=== PATIENT | male | born 1970 ===

== ENCOUNTER → 2021-04-19 12:10 | Outpatient (CLI) | payer OTHER, SELFPAY ==
[2021-04-19 19:30] LABS: Alanine Aminotransferase 34 IU/L (<50); Albumin 4.6 g/dL (3.5-5.0); Albumin Globulin Ratio 1.3 (1.0-2.8); Alkaline Phosphatase 80 U/L (38-126); Amylase 62 U/L (30-110); Aspartate Aminotransferase 31 IU/L (17-59); BUN Creatinine Ratio 15.7 (6-22); Bilirubin Total 0.7 mg/dL (0.2-1.3); Blood Urea Nitrogen 13 mg/dL (9-20); Calcium 9.5 mg/dL (8.4-10.2); Carbon Dioxide 34 mmol/L (22-32); Chloride 101 mmol/L (98-107); Estimated Glomerular Filt Rate > 60.0 mL/min (>60); Globulin 3.5 g/dL (1.7-4.1); Glucose 97 mg/dL (70-100); HEMOLYSIS < 15 (0-50); Lipase 65 U/L (23-300); Potassium 4.4 mmol/L (3.4-5.1); Sodium 139 mmol/L (137-145); Total Protein 8.1 g/dL (6.3-8.2)
[2021-04-19 19:31] LABS: Add Manual Diff / Slide Review NO; Basophils Absolute Auto 0 /uL (0-100); Basophils Percent Auto 0.5 % (0-2); Eosinophils Absolute Auto 100 /uL (0-450); Eosinophils Percent Auto 1.5 % (2-4); Hematocrit 46.3 % (41-53); Hemoglobin 16.2 g/dL (13.5-17.5); Lymphocytes Absolute Auto 1100 /uL (1100-4500); Lymphocytes Percent Auto 19.1 % (25-40); Mean Corpuscular HGB Conc 34.9 % (30-36); Mean Corpuscular Hemoglobin 31.9 PG (26-34); Mean Corpuscular Volume 91.3 fL (80-100); Monocytes Absolute Auto 500 /uL (0-900); Monocytes Percent Auto 8.4 % (3-14); Neutrophils Absolute Auto 3900 /uL (1500-7000); Neutrophils Percent Auto 70.5 % (50-75); Platelet Count 183 X10^3/uL (150-400); Red Blood Cell Count 5.08 X10^6/uL (4.5-5.9); Red Cell Distribution Width 13.9 % (11.6-14.8); White Blood Cell Count 5.6 X10^3/uL (4.5-11.0)
== END ==
PROVIDERS: PCP Physician Assistant; Visit Provider Physician Assistant
DX: R10.12 Left upper quadrant pain (principal)
CPT/HCPCS: 80053; 82150; 83690; 85025

== ENCOUNTER → 2022-01-27 10:28 | Outpatient (CLI) | payer OTHER, SELFPAY ==
[2022-01-27 20:05] LABS: Cholesterol 234 mg/dL (140-199); HDL Cholesterol 45 mg/dL (40-60); LDL Cholesterol Calculated 171 mg/dL (<100); Triglycerides 91 mg/dL (35-150)
[2022-01-27 20:27] LABS: TSH w/ Reflex to FT4 1.89 uIU/mL (0.47-4.68)
[2022-01-27 20:29] LABS: Prostate Specific Antigen Scrn 0.858 ng/mL (0.1-4.0)
== END ==
PROVIDERS: PCP Physician Assistant; Visit Provider Physician Assistant
DX: Z13.6 Encounter for screening for cardiovascular disorders (principal); Z12.5 Encounter for screening for malignant neoplasm of prostate; R06.02 Shortness of breath
CPT/HCPCS: 80061; 84443; G0103

== ENCOUNTER → 2022-05-16 08:49 | Outpatient (CLI) | payer OTHER, SELFPAY ==
[2022-05-16 19:17] LABS: Alanine Aminotransferase 30 IU/L (<50); Albumin 4.6 g/dL (3.5-5.0); Albumin Globulin Ratio 1.4 (1.0-2.8); Alkaline Phosphatase 79 U/L (38-126); Aspartate Aminotransferase 29 IU/L (17-59); Bilirubin Total 0.4 mg/dL (0.2-1.3); Blood Urea Nitrogen 17 mg/dL (9-20); Calcium 9.2 mg/dL (8.4-10.2); Carbon Dioxide 31 mmol/L (22-32); Chloride 101 mmol/L (98-107); Estimated Glomerular Filt Rate > 60 mL/min (>60); Globulin 3.3 g/dL (1.7-4.1); Glucose 107 mg/dL (70-100); HEMOLYSIS 19 (0-50); Magnesium 1.9 mg/dL (1.6-2.3); Potassium 4.4 mmol/L (3.4-5.1); Sodium 139 mmol/L (137-145); Total Protein 7.9 g/dL (6.3-8.2)
[2022-05-16 19:52] LABS: HIV 1 & 2 Ab/Ag 4th Gen Combo NEGATIVE (NEGATIVE)
[2022-05-16 20:30] LABS: Urine N gonorrhoeae NOT DETECTED
[2022-05-16 20:57] LABS: Urine Chlamydia NOT DETECTED
[2022-05-19 05:50] LABS: RPR Screen Non Reactive (Non Reactive)
== END ==
PROVIDERS: PCP Physician Assistant; Visit Provider Physician Assistant
DX: Z11.3 Encounter for screening for infections with a predominantly sexual mode of transmission (principal); R07.9 Chest pain, unspecified
CPT/HCPCS: 80053; 83735; 86592; 87389; 87491; 87591

== ENCOUNTER → 2024-06-17 08:31 | Outpatient (CLI) | payer BC, SELFPAY ==
[2024-06-17 19:11] LABS: Alanine Aminotransferase 56 IU/L (<50); Albumin 4.5 g/dL (3.5-5.0); Albumin Globulin Ratio 1.5 (1.0-2.8); Alkaline Phosphatase 77 U/L (38-126); Aspartate Aminotransferase 52 IU/L (17-59); BUN Creatinine Ratio 22.1 (6-22); Bilirubin Total 0.4 mg/dL (0.2-1.3); Blood Urea Nitrogen 19 mg/dL (9-20); Calcium 9.7 mg/dL (8.4-10.2); Carbon Dioxide 27 mmol/L (22-32); Chloride 103 mmol/L (98-107); Cholesterol 256 mg/dL (140-199); Estimated Glomerular Filt Rate > 60 mL/min (>60); Globulin 3.1 g/dL (1.7-4.1); Glucose 128 mg/dL (70-100); HDL Cholesterol 40 mg/dL (40-60); HEMOLYSIS 17 (0-50); Potassium 4.3 mmol/L (3.4-5.1); Sodium 137 mmol/L (137-145); Total Protein 7.6 g/dL (6.3-8.2); Triglycerides 410 mg/dL (35-150)
[2024-06-17 19:42] LABS: Prostate Specific Antigen Scrn 0.822 ng/mL (0.1-4.0)
== END ==
PROVIDERS: PCP Physician Assistant; Visit Provider Physician Assistant
DX: Z13.6 Encounter for screening for cardiovascular disorders (principal); Z12.5 Encounter for screening for malignant neoplasm of prostate
CPT/HCPCS: 80053; 80061; G0103